=== PATIENT | male | born 1955 | race Caucasian/White ===

== ENCOUNTER 2021-06-22 15:52 | Observation (INO) | payer BC, MEDICARE ==
[2021-06-22] MEDS ORDERED: 50% Dextrose in Water 50 ML Syringe IVPUSH PRN (17:16)
[2021-06-22] MEDS ORDERED: Diltiazem 25 MG/5 ML SDV IVPUSH ONE (17:16)
[2021-06-22] MEDS ORDERED: Glucagon,Human Recombinant 1 MG Vial IM PRN (17:16)
[2021-06-22] MEDS ORDERED: Non-Formulary Medication 1 Each (Semaglutide [Ozempic] 1 MG/0.75 ML Pen.Injctr) SUBCUT SCH (17:30)
[2021-06-22] MEDS: Sodium Chloride 0.9% 10 ML Syringe FLUSH PRN (17:53)
[2021-06-22] MEDS ORDERED: metFORMIN 1,000 MG Tab PO SCH (18:00)
[2021-06-22] MEDS: Insulin Lispro 100 Unit/ML 3 ML KwikPen SUBCUT SCH (19:00)
[2021-06-22] MEDS: GLIPIZIDE 10 MG PO SCH (20:11)
[2021-06-22] MEDS: METFORMIN 1000 MG PO SCH (20:11)
[2021-06-22] MEDS: POTASSIUM CHLORIDE 20 MEQ PO SCH (20:12)
[2021-06-22] MEDS ORDERED: Enoxaparin 40 MG/0.4 ML Syringe SUBCUT SCH (21:00)
[2021-06-22] MEDS ORDERED: Simvastatin 40 MG Tab *PT OWN MED PO SCH (21:00)
[2021-06-22] MEDS ORDERED: Simvastatin 40 MG Tab PO SCH (21:00)
[2021-06-23] MEDS ORDERED: Acetaminophen 325 MG Tab PO PRN (02:34)
[2021-06-23] MEDS ORDERED: LEVOCETIRIZINE DIHYDROCHLORIDE 5 MG PO SCH (09:00)
[2021-06-23] MEDS ORDERED: Lisinopril 40 MG Tab *PTOM PO SCH (09:00)
[2021-06-23] MEDS ORDERED: VITAMIN B COMPLEX PO SCH (09:00)
[2021-06-23] MEDS ORDERED: PAROXETINE 20 MG PO SCH (09:00)
[2021-06-23] MEDS ORDERED: PARoxetine 20 MG Tab PO SCH (09:00)
[2021-06-23] MEDS ORDERED: CHOLECALCIFEROL 125 MCG PO SCH (09:00)
[2021-06-23] MEDS ORDERED: Furosemide 40 MG Tab PO SCH (09:00)
[2021-06-23] MEDS: Insulin Lispro 100 Unit/ML 3 ML KwikPen SUBCUT SCH ×2 (09:01→12:58)
[2021-06-23] MEDS: Furosemide 40 MG Tab *PTOM PO SCH ×2 (09:06→09:10)
[2021-06-23] MEDS: POTASSIUM CHLORIDE 20 MEQ PO SCH (09:07)
[2021-06-23] MEDS: METFORMIN 1000 MG PO SCH (09:17)
[2021-06-23] MEDS: GLIPIZIDE 10 MG PO SCH (09:19)
[2021-06-23] MEDS: Sodium Chloride 0.9% 10 ML Syringe FLUSH PRN (10:20)
[2021-06-23] MEDS ORDERED: Perflutren Lipid Microspheres 2.2 MG/2 ML SDV IVPUSH ONE (14:47)
== END 2021-06-23 14:20 | disposition home or self-care (01) ==
LOC: FB.MS 16:16
PROVIDERS: ADMIT Family Medicine; ATTEND Family Medicine
DX: I48.19 Other persistent atrial fibrillation (principal); E11.9 Type 2 diabetes mellitus without complications; M54.50 Low back pain, unspecified; F43.10 Post-traumatic stress disorder, unspecified; F32.9 Major depressive disorder, single episode, unspecified; I11.0 Hypertensive heart disease with heart failure; I50.9 Heart failure, unspecified; Z20.822 Contact with and (suspected) exposure to COVID-19; Z88.0 Allergy status to penicillin; Z79.82 Long term (current) use of aspirin; Z79.84 Long term (current) use of oral hypoglycemic drugs
CPT/HCPCS: 36415; 80048; 82947; 84443; 84484; 85025; 96372; 96374; 96375; A9270; C8929; G0378; G0379; J1650; J1815; J3490; Q9957; U0002

== ENCOUNTER 2022-10-27 18:11 | Inpatient (IN) | payer MEDICARE, OTHER ==
[2022-10-27 19:27] LABS: BASE EXCESS VENOUS,POC 0 mmol/L (-2 - 3+); PCO2 VENOUS,POC 58 mmHg (41-51)
[2022-10-27] MEDS ORDERED: Sodium Chloride 0.9% 500 ML IV ONE (19:35)
[2022-10-27 19:39] LABS: BASOPHILS PERCENT AUTO 0.3 % (0.3-3.8); EOSINOPHILS ABSOLUTE AUTO 0.3 x10-3/uL (0.0-0.6); EOSINOPHILS PERCENT AUTO 2.6 % (0.1-6.8); HEMATOCRIT 46.6 % (38.3-50.1); HEMOGLOBIN 15.2 g/dL (12.9-17.7); LYMPHOCYTES ABSOLUTE AUTO 0.8 x10-3/uL (0.5-4.5); LYMPHOCYTES PERCENT AUTO 7.4 % (15.8-45.3); MEAN CORPUSCULAR HEMOGLOBIN 28.4 pg (27.0-33.3); MEAN CORPUSCULAR HGB CONC 32.6 g/dL (28.7-35.3); MEAN CORPUSCULAR VOLUME 87.1 fL (80.8-98.7); MEAN PLATELET VOLUME 9.8 fL (6.7-11.0); MONOCYTES ABSOLUTE AUTO 0.9 x10-3/uL (0.0-1.2); MONOCYTES PERCENT AUTO 8.2 % (5.5-15.2); NEUTROPHILS ABSOLUTE AUTO 9.1 x10-3/uL (1.7-6.9); NEUTROPHILS PERCENT AUTO 81.5 % (40.3-71.8); PLATELET COUNT,PLT 153 x10(3)uL (117-477); RED BLOOD CELL COUNT 5.35 x10(6)uL (3.90-5.90); RED CELL DISTRIBUTION WIDTH 14.9 % (12.4-15.0); WHITE BLOOD CELL COUNT,WBC 11.2 x10-3/uL (3.2-10.1)
[2022-10-27 19:40] LABS: BLOOD UREA NITROGEN,BUN 19 mg/dL (7-18); BUN/CREATININE RATIO 21.1 (9-20); CALCIUM 8.9 mg/dL (8.6-10.2); CARBON DIOXIDE,CO2 31 mmol/L (21-32); CHLORIDE,CL 102 mmol/L (100-110); CREATININE 0.9 mg/dL (0.70-1.30); ESTIMATED GFR 92 mL/min (>60); GLUCOSE RANDOM 115 mg/dL (80-116); POTASSIUM,K 3.9 mmol/L (3.5-5.3); SODIUM,NA 138 mmol/L (135-145)
[2022-10-27 19:46] LABS: A/G RATIO 0.8; ALANINE AMINOTRANSFERASE,ALT 20 U/L (12-36); ALBUMIN 3.6 g/dL (3.2-4.6); ALKALINE PHOSPHATASE 59 IU/L (56-112); ASPARTATE AMNIOTRANSFERASE,AST 14 IU/L (5-25); BILIRUBIN TOTAL 1.7 mg/dL (0.1-1.3); MAGNESIUM 1.9 mg/dL (1.8-2.5); PROTEIN TOTAL,TP 7.9 g/dL (6.0-8.0)
[2022-10-27 20:13] LABS: APPEARANCE,URINE CLEAR (CLEAR); BACTERIA,URINE RARE (NS); BILIRUBIN,URINE NEGATIVE (NEGATIVE); COLOR,URINE YELLOW (YELLOW); GLUCOSE,URINE NORMAL (NORMAL); KETONES,URINE NEGATIVE (NEGATIVE); LEUKOCYTE ESTERASE,URINE NEGATIVE (NEGATIVE); NITRITE,URINE NEGATIVE (NEGATIVE); OCCULT BLOOD,URINE TRACE (NEGATIVE); PROTEIN,URINE 500 mg/dL (NEGATIVE); RBC,URINE 0-5 (0-5); SQUAMOUS EPITHELIAL CELLS,UR RARE (NS,R,O); UROBILINOGEN,URINE 4 mg/dL (NEGATIVE); WBC,URINE 0-5 (0-5)
[2022-10-27] MEDS ORDERED: Acetaminophen 325 MG Tab PO PRN (21:47)
[2022-10-27] MEDS ORDERED: Ondansetron 4 MG/2 ML SDV IV PRN (21:47)
[2022-10-27] MEDS ORDERED: Sodium Chloride 0.9% 1,000 ML IV SCH (22:00)
[2022-10-27] MEDS ORDERED: Mupirocin Oint 22 GM Tube TOP SCH (22:00)
[2022-10-28] MEDS: Saccharomyces Boulardii (Probiotic) 250 MG Cap PO SCH ×3 (00:28→21:20)
[2022-10-28] MEDS: cefTRIAXone 1 GM Vial IVPUSH SCH ×3 (00:32→21:35)
[2022-10-28] MEDS: Pantoprazole 40 MG Vial IVPUSH SCH ×3 (00:54→21:25)
[2022-10-28] MEDS: VANCOmycin 1 GM/200 ML 200 ML IV SCH ×3 (00:58→21:45)
[2022-10-28 06:34] LABS: BASOPHILS PERCENT AUTO 0.4 % (0.3-3.8); EOSINOPHILS ABSOLUTE AUTO 0.3 x10-3/uL (0.0-0.6); EOSINOPHILS PERCENT AUTO 2.9 % (0.1-6.8); HEMATOCRIT 39.2 % (38.3-50.1); HEMOGLOBIN 12.8 g/dL (12.9-17.7); LYMPHOCYTES PERCENT AUTO 9.9 % (15.8-45.3); MEAN CORPUSCULAR HEMOGLOBIN 28.4 pg (27.0-33.3); MEAN CORPUSCULAR HGB CONC 32.7 g/dL (28.7-35.3); MEAN CORPUSCULAR VOLUME 86.8 fL (80.8-98.7); MEAN PLATELET VOLUME 9.3 fL (6.7-11.0); MONOCYTES ABSOLUTE AUTO 1.1 x10-3/uL (0.0-1.2); MONOCYTES PERCENT AUTO 10.3 % (5.5-15.2); NEUTROPHILS ABSOLUTE AUTO 7.9 x10-3/uL (1.7-6.9); NEUTROPHILS PERCENT AUTO 76.5 % (40.3-71.8); PLATELET COUNT,PLT 147 x10(3)uL (117-477); RED BLOOD CELL COUNT 4.51 x10(6)uL (3.90-5.90); RED CELL DISTRIBUTION WIDTH 14.7 % (12.4-15.0); WHITE BLOOD CELL COUNT,WBC 10.4 x10-3/uL (3.2-10.1)
[2022-10-28 06:40] LABS: BLOOD UREA NITROGEN,BUN 16 mg/dL (7-18); CALCIUM 8.4 mg/dL (8.6-10.2); CARBON DIOXIDE,CO2 29 mmol/L (21-32); CHLORIDE,CL 106 mmol/L (100-110); EST CRCL DRUG DOSING (CG) 71.99 mL/min; ESTIMATED GFR 81 mL/min (>60); GLUCOSE RANDOM 97 mg/dL (80-116); POTASSIUM,K 3.8 mmol/L (3.5-5.3); SODIUM,NA 141 mmol/L (135-145)
[2022-10-28] MEDS: Digoxin 125 MCG Tab PO SCH (11:30)
[2022-10-28] MEDS: Apixaban 5 MG Tab PO SCH ×2 (11:30→21:21)
[2022-10-28] MEDS: glipiZIDE 10 MG Tab.ER PO SCH ×2 (11:31→17:36)
[2022-10-28] MEDS: Furosemide 40 MG Tab PO SCH (11:31)
[2022-10-28] MEDS: PARoxetine 20 MG Tab PO SCH (11:31)
[2022-10-28] MEDS: Metoprolol Succinate 100 MG Tab.ER PO SCH (11:31)
[2022-10-28] MEDS: metFORMIN 1,000 MG Tab PO SCH ×2 (11:31→17:36)
[2022-10-28] MEDS: Sodium Chloride 0.9% 10 ML Syringe FLUSH PRN ×3 (11:35→21:34)
[2022-10-28] MEDS: Potassium Chloride 20 MEQ Tab.ER PO SCH ×2 (14:26→21:20)
[2022-10-28] MEDS: Simvastatin 40 MG Tab PO SCH (21:20)
[2022-10-29] MEDS: Loperamide 2 MG Cap PO PRN ×3 (00:31→21:20)
[2022-10-29 06:48] LABS: BASOPHILS ABSOLUTE AUTO 0.1 x10-3/uL (0.0-0.3); BASOPHILS PERCENT AUTO 0.6 % (0.3-3.8); EOSINOPHILS ABSOLUTE AUTO 0.4 x10-3/uL (0.0-0.6); HEMATOCRIT 41.4 % (38.3-50.1); HEMOGLOBIN 13.6 g/dL (12.9-17.7); LYMPHOCYTES ABSOLUTE AUTO 1.3 x10-3/uL (0.5-4.5); MEAN CORPUSCULAR HEMOGLOBIN 28.3 pg (27.0-33.3); MEAN CORPUSCULAR HGB CONC 32.8 g/dL (28.7-35.3); MEAN CORPUSCULAR VOLUME 86.3 fL (80.8-98.7); MEAN PLATELET VOLUME 9.6 fL (6.7-11.0); MONOCYTES ABSOLUTE AUTO 0.9 x10-3/uL (0.0-1.2); MONOCYTES PERCENT AUTO 10.3 % (5.5-15.2); NEUTROPHILS ABSOLUTE AUTO 6.4 x10-3/uL (1.7-6.9); NEUTROPHILS PERCENT AUTO 71.1 % (40.3-71.8); PLATELET COUNT,PLT 158 x10(3)uL (117-477); RED BLOOD CELL COUNT 4.79 x10(6)uL (3.90-5.90); RED CELL DISTRIBUTION WIDTH 14.9 % (12.4-15.0); WHITE BLOOD CELL COUNT,WBC 9.1 x10-3/uL (3.2-10.1)
[2022-10-29 06:56] LABS: BLOOD UREA NITROGEN,BUN 16 mg/dL (7-18); BUN/CREATININE RATIO 13.3 (9-20); CALCIUM 8.5 mg/dL (8.6-10.2); CARBON DIOXIDE,CO2 27 mmol/L (21-32); CHLORIDE,CL 105 mmol/L (100-110); CREATININE 1.2 mg/dL (0.70-1.30); EST CRCL DRUG DOSING (CG) 59.99 mL/min; ESTIMATED GFR 65 mL/min (>60); GLUCOSE RANDOM 80 mg/dL (80-116); POTASSIUM,K 3.6 mmol/L (3.5-5.3); SODIUM,NA 141 mmol/L (135-145)
[2022-10-29] MEDS: Saccharomyces Boulardii (Probiotic) 250 MG Cap PO SCH ×2 (08:12→21:02)
[2022-10-29] MEDS: Apixaban 5 MG Tab PO SCH ×2 (08:12→21:01)
[2022-10-29] MEDS: Potassium Chloride 20 MEQ Tab.ER PO SCH ×3 (08:13→21:01)
[2022-10-29] MEDS: Furosemide 40 MG Tab PO SCH (08:14)
[2022-10-29] MEDS: Metoprolol Succinate 100 MG Tab.ER PO SCH (08:42)
[2022-10-29] MEDS: Digoxin 125 MCG Tab PO SCH (08:43)
[2022-10-29] MEDS: cefTRIAXone 1 GM Vial IVPUSH SCH ×2 (09:48→21:11)
[2022-10-29] MEDS: Sodium Chloride 0.9% 10 ML Syringe FLUSH PRN ×5 (09:49→21:16)
[2022-10-29] MEDS: Pantoprazole 40 MG Vial IVPUSH SCH ×2 (10:03→21:04)
[2022-10-29] MEDS: Cetirizine 10 MG Tab PO SCH (10:20)
[2022-10-29] MEDS: VANCOmycin 1.5 GM/300 ML 300 ML IV SCH (10:20)
[2022-10-29] MEDS: glipiZIDE 10 MG Tab.ER PO SCH ×2 (11:57→17:29)
[2022-10-29] MEDS: metFORMIN 1,000 MG Tab PO SCH ×2 (11:57→17:29)
[2022-10-29] MEDS: PARoxetine 20 MG Tab PO SCH (11:58)
[2022-10-29] MEDS: Simvastatin 40 MG Tab PO SCH (21:02)
[2022-10-30] MEDS: Sodium Chloride 0.9% 10 ML Syringe FLUSH PRN ×3 (09:11→21:38)
[2022-10-30] MEDS: Pantoprazole 40 MG Vial IVPUSH SCH ×2 (09:14→21:32)
[2022-10-30] MEDS: cefTRIAXone 1 GM Vial IVPUSH SCH (09:15)
[2022-10-30] MEDS: Apixaban 5 MG Tab PO SCH ×2 (09:17→21:32)
[2022-10-30] MEDS: Metoprolol Succinate 100 MG Tab.ER PO SCH (09:17)
[2022-10-30] MEDS: Digoxin 125 MCG Tab PO SCH (09:18)
[2022-10-30] MEDS: Cetirizine 10 MG Tab PO SCH (09:18)
[2022-10-30] MEDS: Furosemide 40 MG Tab PO SCH (09:18)
[2022-10-30] MEDS: Saccharomyces Boulardii (Probiotic) 250 MG Cap PO SCH ×2 (09:18→21:39)
[2022-10-30] MEDS: Potassium Chloride 20 MEQ Tab.ER PO SCH ×3 (09:18→21:31)
[2022-10-30] MEDS: VANCOmycin 1.5 GM/300 ML 300 ML IV SCH (09:19)
[2022-10-30] MEDS: metFORMIN 1,000 MG Tab PO SCH ×2 (11:00→18:25)
[2022-10-30] MEDS: glipiZIDE 10 MG Tab.ER PO SCH ×2 (11:00→18:25)
[2022-10-30] MEDS: PARoxetine 20 MG Tab PO SCH (13:47)
[2022-10-30] MEDS: Loperamide 2 MG Cap PO PRN (18:25)
[2022-10-30] MEDS: Simvastatin 40 MG Tab PO SCH (21:31)
[2022-10-31] MEDS: Metoprolol Succinate 100 MG Tab.ER PO SCH (08:48)
[2022-10-31] MEDS: Furosemide 40 MG Tab PO SCH (08:49)
[2022-10-31] MEDS: Saccharomyces Boulardii (Probiotic) 250 MG Cap PO SCH (08:50)
[2022-10-31] MEDS: Digoxin 125 MCG Tab PO SCH (08:50)
[2022-10-31] MEDS: Potassium Chloride 20 MEQ Tab.ER PO SCH ×3 (08:50→15:20)
[2022-10-31] MEDS: Cetirizine 10 MG Tab PO SCH (08:51)
[2022-10-31] MEDS: Apixaban 5 MG Tab PO SCH (08:51)
[2022-10-31] MEDS: cefTRIAXone 1 GM Vial IVPUSH SCH (09:00)
[2022-10-31] MEDS: VANCOmycin 1.5 GM/300 ML 300 ML IV SCH (09:00)
[2022-10-31] MEDS: Sodium Chloride 0.9% 10 ML Syringe FLUSH PRN (09:00)
[2022-10-31] MEDS: Pantoprazole 40 MG Vial IVPUSH SCH (09:00)
[2022-10-31] MEDS: glipiZIDE 10 MG Tab.ER PO SCH (11:15)
[2022-10-31] MEDS: metFORMIN 1,000 MG Tab PO SCH (11:15)
[2022-10-31] MEDS: PARoxetine 20 MG Tab PO SCH (11:15)
[2022-11-02] MEDS ORDERED: Non-Formulary Medication 1 Each (Semaglutide [Ozempic] 1 MG/0.75 ML Pen.Injctr) SUBCUT SCH (09:00)
== END 2022-10-31 13:20 | disposition home health service (06) | DRG 603 ==
LOC: FB.ED 18:11 → FB.MS 21:34
PROVIDERS: ADMIT Emergency Medicine; ATTEND Family Medicine
DX: L03.115 Cellulitis of right lower limb (principal); E11.42 Type 2 diabetes mellitus with diabetic polyneuropathy; E11.9 Type 2 diabetes mellitus without complications; E66.9 Obesity, unspecified; E86.0 Dehydration; I10 Essential (primary) hypertension; M19.071 Primary osteoarthritis, right ankle and foot; Z51.5 Encounter for palliative care; I11.0 Hypertensive heart disease with heart failure; Z79.82 Long term (current) use of aspirin; I50.9 Heart failure, unspecified; Z79.01 Long term (current) use of anticoagulants; E78.00 Pure hypercholesterolemia, unspecified; I48.91 Unspecified atrial fibrillation; Z96.641 Presence of right artificial hip joint; F41.9 Anxiety disorder, unspecified; F32.4 Major depressive disorder, single episode, in partial remission; F43.10 Post-traumatic stress disorder, unspecified; Z88.0 Allergy status to penicillin; Z90.49 Acquired absence of other specified parts of digestive tract; Z87.891 Personal history of nicotine dependence; Z98.890 Other specified postprocedural states; Z99.81 Dependence on supplemental oxygen; Z79.84 Long term (current) use of oral hypoglycemic drugs; Z79.899 Other long term (current) drug therapy; Z68.33 Body mass index [BMI] 33.0-33.9, adult
CPT/HCPCS: 36415; 73590; 73630; 80053; 81001; 83605; 83735; 85025; 86140; 87040 ×2; 87070; 87205; 96360; 99284; J7040; 80048; 80202; 82947; 99222; 99232; 99238; 99285; A9270-GY; C9113; J0696; J3370; J3490; J7030

== ENCOUNTER 2022-12-20 03:17 | Emergency (ER) | payer MEDICARE ==
[2022-12-20] MEDS ORDERED: Ondansetron 4 MG/2 ML SDV IVPUSH ONE (03:51)
[2022-12-20] MEDS ORDERED: Sodium Chloride 0.9% 10 ML Syringe FLUSH PRN (04:54)
[2022-12-20 05:05] LABS: BLOOD UREA NITROGEN,BUN 21 mg/dL (7-18); BUN/CREATININE RATIO 19.1 (9-20); CARBON DIOXIDE,CO2 26 mmol/L (21-32); CHLORIDE,CL 102 mmol/L (100-110); CREATININE 1.1 mg/dL (0.70-1.30); ESTIMATED GFR 73 mL/min (>60); GLUCOSE RANDOM 224 mg/dL (80-116); POTASSIUM,K 3.2 mmol/L (3.5-5.3); SODIUM,NA 140 mmol/L (135-145)
[2022-12-20 05:07] LABS: HEMOGLOBIN 15.1 g/dL (12.9-17.7); MEAN CORPUSCULAR HEMOGLOBIN 28.3 pg (27.0-33.3); MEAN CORPUSCULAR HGB CONC 32.9 g/dL (28.7-35.3); MEAN PLATELET VOLUME 10.2 fL (6.7-11.0); PLATELET COUNT,PLT 134 x10(3)uL (117-477); RED BLOOD CELL COUNT 5.34 x10(6)uL (3.90-5.90); RED CELL DISTRIBUTION WIDTH 15.4 % (12.4-15.0); WHITE BLOOD CELL COUNT,WBC 9.3 x10-3/uL (3.2-10.1)
[2022-12-20 05:10] LABS: ALANINE AMINOTRANSFERASE,ALT 25 U/L (12-36); ALBUMIN 3.5 g/dL (3.2-4.6); ALKALINE PHOSPHATASE 75 IU/L (56-112); ASPARTATE AMNIOTRANSFERASE,AST 21 IU/L (5-25); BILIRUBIN TOTAL 1.5 mg/dL (0.1-1.3); MAGNESIUM 1.7 mg/dL (1.8-2.5); PROTEIN TOTAL,TP 7.1 g/dL (6.0-8.0)
[2022-12-20 05:15] LABS: C-REACTIVE PROTEIN 1.11 mg/dL (<0.33)
[2022-12-20 05:25] LABS: EOSINOPHILS PERCENT MAN 2 % (0-5); LYMPHOCYTES PERCENT MAN 7 % (13-37); MONOCYTES PERCENT MAN 3 % (4-12); SEG NEUTROPHILS PERCENT MAN 88 % (46-82)
[2022-12-20] MEDS ORDERED: Metoprolol Succinate 100 MG Tab.ER PO ONE (06:07)
[2022-12-20] MEDS ORDERED: Digoxin 125 MCG Tab PO ONE (06:07)
[2022-12-20 06:28] LABS: BILIRUBIN,URINE NEGATIVE (NEGATIVE); GLUCOSE,URINE 250 mg/dL (NORMAL); KETONES,URINE 15 mg/dL (NEGATIVE); LEUKOCYTE ESTERASE,URINE NEGATIVE (NEGATIVE); NITRITE,URINE NEGATIVE (NEGATIVE); OCCULT BLOOD,URINE MODERATE (NEGATIVE); PH,URINE 6.5 (5.0-6.5); PROTEIN,URINE 500 mg/dL (NEGATIVE); UROBILINOGEN,URINE NORMAL (NEGATIVE)
[2022-12-20 06:29] LABS: COLOR,URINE YELLOW (YELLOW)
[2022-12-20] MEDS ORDERED: Sodium Chloride 0.9% 500 ML IV ONE (06:29)
[2022-12-20 06:30] LABS: APPEARANCE,URINE CLEAR (CLEAR); BACTERIA,URINE FEW (NS); FINE GRANULAR CASTS,URINE FEW (NS); SQUAMOUS EPITHELIAL CELLS,UR OCCASIONAL (NS,R,O); WBC,URINE 0-5 (0-5)
[2022-12-20] MEDS ORDERED: Magnesium Oxide 400 MG Tab PO ONE (06:30)
[2022-12-20] MEDS ORDERED: Meclizine 25 MG Tab PO ONE ×2 (06:30→08:33)
[2022-12-20] MEDS ORDERED: Potassium Chloride 20 MEQ Tab.ER PO ONE (06:30)
[2022-12-20] MEDS ORDERED: Metoclopramide 10 MG/2 ML SDV IVPUSH ONE (06:31)
[2022-12-20] MEDS ORDERED: Labetalol 20 MG/4 ML Syringe IVPUSH ONE (07:29)
== END 2022-12-20 10:15 | disposition still patient (30) ==
LOC: FB.ED 03:17
DX: E86.0 Dehydration (principal); E87.6 Hypokalemia; E83.42 Hypomagnesemia; I48.19 Other persistent atrial fibrillation; R11.2 Nausea with vomiting, unspecified; R19.7 Diarrhea, unspecified; I11.0 Hypertensive heart disease with heart failure; I50.9 Heart failure, unspecified; E78.00 Pure hypercholesterolemia, unspecified; E11.40 Type 2 diabetes mellitus with diabetic neuropathy, unspecified; E66.9 Obesity, unspecified; Z79.01 Long term (current) use of anticoagulants; Z79.899 Other long term (current) drug therapy; Z88.0 Allergy status to penicillin
CPT/HCPCS: 36415; 70450; 71045; 80053; 81001; 83735; 84484; 85025; 86140; 93005; 96361; 96374; 96375; 99285; A9270; J2405; J2765; J3490; J7040